=== PATIENT | female | born 1985 | race Caucasian/White ===

== ENCOUNTER 2017-03-30 16:47 | Emergency (ER) | payer OTHER ==
[~2017-03-30] VITALS: Ht 170.2 cm; Wt 50.8 kg
[~2017-03-30 16:47] MED LIST: ALLEGRA ALLERG180 MG PO; AMOXICILLIN500 M1 PO; APAP500; AUGMENTIN 875875 MG PO; COLACE 100 MG100 MG PO; FLONASE 0.05%50 MCG NASAL; HYDROCODONE-AP1 EAC6 PO; IBUPROFEN 600600 M1 PO; IBUPROFEN 800800 M1; IRON325 PO; NAPROSYN500 MG PO; NOHOMEMEDICATIONS; NORCO 5-325 TA1 EACH PO; PRENATAL; PRENATAL COMPL1 EACH; TRAMADOL 50 MG50 MG PO; TRINATE TABLET1 TAB; TUCKS MEDICATE1 EAC1
[2017-03-30 16:49] VITALS: BP 107/66
[2017-03-30] MEDS ORDERED: PREDNISONE 20 M20 MG PO (18:03)
[2017-03-30] MEDS ORDERED: ULTRAM 50MG TAB50 MG PO (18:03)
[2017-03-30] MEDS ORDERED: CYCLOBENZAPRINE5 MG PO (18:03)
[2017-03-31 19:08] LABS: CHLAMYDIA TRACHOMATIS-PCR Negative (Negative); NEISSERIA GONORRHEA-PCR Negative (Negative)
== END 2017-03-30 18:25 | disposition home or self-care (01) ==
LOC: ER 16:47
PROVIDERS: Physician Assistant
DX: M54.5 Low back pain (principal); Z20.2 Contact with and (suspected) exposure to infections with a predominantly sexual mode of transmission; F17.210 Nicotine dependence, cigarettes, uncomplicated

== ENCOUNTER 2018-08-29 19:01 | Emergency (ER) | payer OTHER ==
[~2018-08-29] VITALS: Ht 170.2 cm; Wt 51.3 kg
[~2018-08-29 19:01] MED LIST changes: +CYCLOBENZAPRINE5 MG PO; +PREDNISONE 20 M20 MG PO; +ULTRAM 50MG TAB50 MG PO
[2018-08-29 19:11] VITALS: BP 143/87
[2018-08-29] MEDS ORDERED: AMOXICILLIN 50500 MG PO (19:20)
[2018-08-29] MEDS ORDERED: IBUPROFEN 600600 M1 PO (19:20)
[2018-08-29] MEDS ORDERED: NORCO 5-325 TA1 EACH PO (19:30)
== END 2018-08-29 19:45 | disposition home or self-care (01) ==
LOC: ER 19:01
DX: K02.9 Dental caries, unspecified (principal); F17.210 Nicotine dependence, cigarettes, uncomplicated